=== PATIENT | female | born 1985 | race Caucasian/White ===

== ENCOUNTER → 2020-06-10 | Outpatient (CLI) | payer OTHER ==
--- NOTE | 2020-06-10 16:37 | RAD ---
EXAMINATION: XR RT SHOULDER 1 VIEW CLINICAL HISTORY: Right shoulder pain. Axillary view only and follow up to shoulder radiographs perfo rmed 05/17/2020 TECHNIQUE: XR RT SHOULDER 1 VIEW Number of Images/Views: 1 COMPARISON: 05/17/2020 FINDINGS/ IMPRESSION: Right glenohumeral and acromioclavicular joints maintained. No acute fracture. Electronically signed by: Biju Rodgers DO (06/10/2020 4:34 PM) [id number]
== END ==
LOC: DXRAD 14:17
PROVIDERS: ATTEND Orthopaedic Surgery
DX: M25.511 Pain in right shoulder (principal)
CPT/HCPCS: 73020